=== PATIENT | female | born 1980 | race Caucasian/White ===

== ENCOUNTER 2018-03-04 13:56 | Emergency (ER) | payer OTHER, SELFPAY ==
[2018-03-04] MEDS ORDERED: HYDROcodone/Acetaminophen 5/325 mg Tablet ONE (16:07)
--- NOTE | 2018-03-04 16:41 | RAD ---
LEFT FOREARM TWO VIEWS: HISTORY: The patient broke her arm at the beginning of January. Pain. COMPARISON: 01/20/2018 FINDINGS: Nonhealed fracture involving the distal ulna. Fracture lucency does persist. There is some callus f ormation. There is associated soft tissue swelling. IMPRESSION: Incompletely healed distal ulnar fracture. POS: TOMY
[2018-03-04] MEDS ORDERED: Ibuprofen 200 MG TAB ONE (16:54)
== END 2018-03-04 17:24 | disposition home or self-care (01) ==
LOC: ERS 13:56
DX: S52.602G Unspecified fracture of lower end of left ulna, subsequent encounter for closed fracture with delayed healing (principal); J45.909 Unspecified asthma, uncomplicated; F41.9 Anxiety disorder, unspecified; F43.10 Post-traumatic stress disorder, unspecified; F17.210 Nicotine dependence, cigarettes, uncomplicated; Z79.899 Other long term (current) drug therapy
CPT/HCPCS: 29125

== ENCOUNTER 2018-04-11 17:18 | Emergency (ER) | payer OTHER ==
[2018-04-11 18:00] LABS: #Eosinphils 0.3 thou/uL (0.0-0.7); #Lymphocytes 2.7 thou/uL (1.20-3.40); #Monocytes 0.9 thou/uL (0.11-0.59); #Neutrophils 8.3 thou/uL (1.40-6.50); %Basophils 0.4 % (0.0-1.0); %Eosinophils 2.3 % (0.0-10.0); %Lymphocytes 21.9 % (21.0-51.0); %Monocytes 7.7 % (0.0-10.0); %Neutrophils 67.8 % (42.0-75.0); Hemoglobin 13.7 g/dL (12.0-16.0); Mean Corpuscular Hemoglobin 30.6 pg (27.0-31.0); Mean Corpuscular Volume 90.1 fL (78.0-98.0); Mean Platelet Volume 7.9 fL (7.4-10.4); Platelet Count 341 thou/uL (130-400); RBC Distribution Width 11.7 % (11.5-14.5); Red Blood Cell (RBC) Count 4.47 mill/uL (4.20-5.40); White Blood Cell (WBC) Count 12.2 thou/uL (4.8-10.8)
[2018-04-11 18:14] LABS: ALT (SGPT) 55 U/L (8-55); AST (SGOT) 29 U/L (5-34); Albumin 4.4 g/dL (3.5-5.0); Alkaline Phosphatase 101 U/L (40-150); Anion Gap 12 mmol/L (10-20); BUN (Urea Nitrogen) 11 mg/dL (7.0-18.7); Bilirubin, Total 0.3 mg/dL (0.2-1.2); Calc. Creatinine Clearance 0 mL/min (70-130); Calcium 9.2 mg/dL (7.8-10.44); Carbon Dioxide 23 mmol/L (22-29); Chloride 106 mmol/L (98-107); Estimated GFR-MDRD 71; Globulin 2.9 g/dL (2.4-3.5); Glucose 141 mg/dL (70-105); Potassium 3.1 mmol/L (3.5-5.1); Protein, Total 7.3 g/dL (6.0-8.3); Sodium 138 mmol/L (136-145)
[2018-04-11 18:15] LABS: Acetaminophen Less than 6.0 mcg/mL (10.0-30.0); Alcohol Less than 10 mg/dL (Less than 10); CK (CPK) 138 U/L (29-168); Salicylate Less than 8.0 mg/dL (15.0-30.0)
[2018-04-11 18:36] LABS: BHCG - Serum Negative (NEGATIVE); Pregs Control Background? CLEAR/WHITE (CLR/WHITE); Pregs Control Bar Appear? YES (CONTROL BAR)
[2018-04-11 18:59] LABS: Clarity CLOUDY (Clear); Leukocyte Moderate (Negative); pH, Urine 6.5 (5.0-9.0)
[2018-04-11 19:00] LABS: Bilirubin Negative (Negative); Blood, Urine Large (Negative); Glucose, Urine (Dipstick) Negative (Negative); Nitrite Negative (Negative); Protein, Urine (Dipstick) 300 mg/dL (Neg-Trace); Urobilinogen 0.2 mg/dL (0.2-1.0)
[2018-04-11 19:01] LABS: Bacteria/HPF 1+ HPF (None Seen); Hyaline Casts/LPF NONE SEEN LPF (0-3 Hyaline); RBC/HPF GREATER THAN 50-TNTC HPF (0-3)
[2018-04-11 19:02] LABS: Pregnancy Test - Urine (BHCG) Negative (Negative); Pregu Control Background? CLEAR/WHITE (CLR/WHITE); Pregu Control Bar Appear? YES (CONTROL BAR)
[2018-04-11] MEDS ORDERED: diphenhydrAMINE 12.5 MG/5 ML UDCUP ONE (19:06)
[2018-04-11] MEDS ORDERED: Potassium Chloride 20 MEQ TAB ONE (19:06)
[2018-04-11 19:07] LABS: Amphetamine Detected (NotDetected); Barbiturates Screen Not Detected (NotDetected); Benzodiazepine Screen Not Detected (NotDetected); Cocaine Metabolite Screen Not Detected (NotDetected); Medtox Control Line Valid? VALID (VALID); Medtox Reader # READER 4; Methadone Not Detected (NotDetected); Methamphetamine Detected (NotDetected); Opiate Screen Not Detected (NotDetected); Oxycodone Screen Not Detected (NotDetected); Phencyclidine (PCP) Not Detected (NotDetected); THC/Cannabinoid Screen Not Detected (NotDetected); Tricyclic Screen Not Detected (NotDetected)
[2018-04-11] MEDS ORDERED: diphenhydrAMINE 50 MG/ML VIAL ONE (19:10)
[2018-04-11] MEDS ORDERED: Lorazepam 2 MG/ML VIAL ONE (19:36)
[2018-04-12] MEDS ORDERED: hydrOXYzine 25 MG TAB ONE (00:24)
[2018-04-12] MEDS ORDERED: hydrOXYzine Pamoate 25 mg Capsule ONE (00:25)
[2018-04-12] MEDS ORDERED: Ziprasidone 20 MG VIAL ONE (01:48)
[2018-04-12] MEDS ORDERED: Lorazepam 2 MG/ML VIAL ONE (01:48)
[2018-04-12] MEDS ORDERED: diphenhydrAMINE 50 MG/ML VIAL ONE (01:48)
[2018-04-12] MEDS ORDERED: clonazePAM 1 MG TAB ONE (04:37)
[2018-04-12] MEDS ORDERED: ADDERALL 30 MG PO SCH (09:00)
[2018-04-12] MEDS ORDERED: FLUoxetine HCl 20 MG CAP PO SCH (09:00)
== END 2018-04-12 11:26 ==
LOC: ERS 17:18
DX: T43.222A Poisoning by selective serotonin reuptake inhibitors, intentional self-harm, initial encounter (principal); J45.909 Unspecified asthma, uncomplicated; Z86.718 Personal history of other venous thrombosis and embolism; F41.9 Anxiety disorder, unspecified; F17.210 Nicotine dependence, cigarettes, uncomplicated; F43.10 Post-traumatic stress disorder, unspecified; Z79.899 Other long term (current) drug therapy
CPT/HCPCS: 36415; 80053; 80306; 80307; 81003; 81015; 81025; 82550; 83735; 84443; 84703; 85025; 93005; 96361; 96374; 96375; J1200; J2060; J3486; Q0177